=== PATIENT | female | born 1995 | race Caucasian/White ===

== ENCOUNTER 2021-01-13 14:47 | Outpatient (CLI) | payer OTHER, SELFPAY | END 2021-01-13 14:48 | disposition home or self-care (01) | LOC: ANHCOVIDVC 14:47 | PROVIDERS: PCP Pediatrics | DX: Z23 Encounter for immunization (principal) | CPT/HCPCS: 0001A; 91300 ==

== ENCOUNTER 2021-02-03 14:45 | Outpatient (CLI) | payer OTHER, SELFPAY | END 2021-02-03 14:46 | disposition home or self-care (01) | LOC: ANHCOVIDVC 14:45 | PROVIDERS: PCP Pediatrics | DX: Z23 Encounter for immunization (principal) | CPT/HCPCS: 0002A; 91300 ==